=== PATIENT | male | born 1945 | race Caucasian/White ===

== ENCOUNTER 2021-10-23 10:41 | Observation (INO) | payer OTHER ==
[~2021-10-23] VITALS: Ht 157.5 cm; Wt 79.8 kg
[~2021-10-23 10:41] MED LIST: AUGMENTIN 875-1 EACH PO
[2021-10-23 12:15] LABS: HEMOGLOBIN 14.5 gm/dl (14.0-17.5); RED BLOOD COUNT 4.88 M/UL (4.20-5.50); WHITE BLOOD COUNT 14.2 K/UL (4.5-11.0)
[2021-10-23] MEDS ORDERED: PROAIR DIGIHAL90 MCG INH (14:54)
[2021-10-23] MEDS ORDERED: ATENOLOL25 MG PO (14:54)
[2021-10-23] MEDS ORDERED: BENAZEPRIL HCL40 MG PO (14:54)
[2021-10-23] MEDS ORDERED: CATAPRES 0.1MG0.1 MG PO (14:55)
[2021-10-23] MEDS ORDERED: ASPIRIN EC81 MG PO (14:55)
[2021-10-23] MEDS ORDERED: VITAMIN B-121000 MCG PO (14:55)
[2021-10-23] MEDS ORDERED: VITAMIN D325 MCG PO (14:56)
[2021-10-23] MEDS ORDERED: AMLODIPINE-BEN1 EAC5 PO (14:57)
[2021-10-23] MEDS ORDERED: WELLBUTRIN XL150 MG PO (14:57)
[2021-10-23] MEDS ORDERED: SIMVASTATIN80 MG PO (14:58)
[2021-10-23] MEDS ORDERED: OMEPRAZOLE20 MG PO (14:58)
[2021-10-23] MEDS ORDERED: DAILY VALUE1 EACH PO (14:58)
[2021-10-24 06:41] LABS: HEMOGLOBIN 12.7 gm/dl (14.0-17.5)
[2021-10-24 06:46] LABS: RED BLOOD COUNT 4.3 M/UL (4.20-5.50); WHITE BLOOD COUNT 10.2 K/UL (4.5-11.0)
[2021-10-24] MEDS ORDERED: AUGMENTIN 875-1 EACH PO (08:25)
== END 2021-10-24 09:40 | disposition home or self-care (01) ==
LOC: ER1 10:41 → CDU 14:03 → 3 EAST 14:03
PROVIDERS: Emergency Medicine; ADMIT Surgery
DX: K57.32 Diverticulitis of large intestine without perforation or abscess without bleeding (principal); I10 Essential (primary) hypertension; J44.9 Chronic obstructive pulmonary disease, unspecified; E78.5 Hyperlipidemia, unspecified; Z87.891 Personal history of nicotine dependence; Z79.82 Long term (current) use of aspirin; Z79.899 Other long term (current) drug therapy; Z20.822 Contact with and (suspected) exposure to COVID-19
CPT/HCPCS: 36415; 80048; 81001; 85025; 96374; 96375; 96376; 99285; G0378; J0696; J2543; Q9967; U0002